=== PATIENT | male | born 1930 | race Caucasian/White ===

== ENCOUNTER 2016-10-07 19:19 | Emergency (ER) | payer OTHER ==
[~2016-10-07] VITALS: Ht 175.3 cm; Wt 80.1 kg
[~2016-10-07 19:19] MED LIST: ZITHROMAX250 MG PO
[2016-10-07 21:44] VITALS: BP 166/77
== END 2016-10-07 21:48 | disposition home or self-care (01) ==
LOC: EME 19:19
PROC: 0HDEXZZ Extraction of Left Lower Arm Skin, External Approach (ICD-10-PCS; principal; 2016-10-07)
DX: S51.812A Laceration without foreign body of left forearm, initial encounter (principal); W19.XXXA Unspecified fall, initial encounter; Z66 Do not resuscitate; F03.90 Unspecified dementia, unspecified severity, without behavioral disturbance, psychotic disturbance, mood disturbance, and anxiety
CPT/HCPCS: 93005; 99281; 99285